=== PATIENT | male | born 1960 | race Hispanic/Latino ===

== ENCOUNTER 2024-04-27 15:41 | Emergency (ER) | payer OTHER ==
[~2024-04-27] VITALS: Ht 165.1 cm; Wt 69.6 kg
[2024-04-27] MEDS ORDERED: OXYCODONE/APAP 5/325 TAB PO ONE (16:00)
[2024-04-27] MEDS ORDERED: CYMBALTA60 MG PO (16:03)
[2024-04-27] MEDS ORDERED: VITAMIN B-121000 MC3 PO (16:03)
[2024-04-27] MEDS ORDERED: ZYRTEC10 M3 PO (16:05)
[2024-04-27] MEDS ORDERED: VITAMIN D350 MCG PO (16:07)
[2024-04-27] MEDS ORDERED: VOLTAREN ARTHRI20 GM (16:09)
[2024-04-27] MEDS ORDERED: UREA85 G1 TOP (16:10)
[2024-04-27] MEDS ORDERED: SEBEX SHAMPOO118 ML TOP (16:10)
[2024-04-27 16:58] VITALS: BP 127/83
== END 2024-04-27 16:55 | disposition other institution, planned readmission (95) ==
LOC: ED 15:41
DX: S60.221A Contusion of right hand, initial encounter (principal); W23.0XXA Caught, crushed, jammed, or pinched between moving objects, initial encounter; Z79.899 Other long term (current) drug therapy
CPT/HCPCS: 73130; 99283

== ENCOUNTER 2024-11-10 09:53 | Emergency (ER) | payer OTHER ==
[~2024-11-10] VITALS: Ht 165.1 cm; Wt 70.4 kg
[~2024-11-10 09:53] MED LIST: CYMBALTA60 MG PO; SEBEX SHAMPOO118 ML TOP; UREA85 G1 TOP; VITAMIN B-121000 MC3 PO; VITAMIN D350 MCG PO; VOLTAREN ARTHRI20 GM; ZYRTEC10 M3 PO
--- OUTSIDE RECORDS SUMMARY | 2024-11-10 09:59 | XMS ---
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 Omero has no Care Guidelines for this patient. [facility] MO[facility] NOTE: Visits indicate total known visits. ED/C VISIT TRACKING (12 MO.) 11/10/2024 09:[facility] [place] TYPE: Emergency COMPLAINT: - LT LEG PAIN 10/28/2024 18:46 [facility] [place] TYPE: Emergency COMPLAINT: - LT LOWER LEG DISCOLORATION DIAGNOSES: - Activity, soccer - Contusion of left lower leg, initial encounter - Struck by soccer ball, initial encounter 10/23/2024 15:39 [facility] [place] TYPE: Emergency COMPLAINT: - LT FOOT SWELLING DIAGNOSES: - Activity, soccer - Contusion of left lower leg, initial encounter - Other technician terminal and repeater (current) drug therapy - Pain in left leg 04/27/2024 15:41 [facility] [place] TYPE: Emergency COMPLAINT: - HAND INJURY DIAGNOSES: - Caught, crushed, jammed, or pinched between moving objects, initial encounter - Contusion of right hand, initial encounter - Other technician terminal and repeater (current) drug therapy - Pain in right hand INPATIENT VISIT TRACKING (12 MO.) No inpatient visits to display in this time frame [email or web address]
[2024-11-10] MEDS ORDERED: B-121000 MC2 PO (10:09)
[2024-11-10] MEDS ORDERED: ALL DAY ALLERGY10 M3 PO (10:09)
[2024-11-10] MEDS ORDERED: ARTHRITIS PAIN150 G1 TP (10:09)
[2024-11-10] MEDS ORDERED: CYMBALTA60 MG PO (10:09)
[2024-11-10] MEDS ORDERED: TRAMADOL HCL50 MG PO (10:10)
[2024-11-10] MEDS ORDERED: VITAMIN D350 MC3 PO (10:10)
[2024-11-10] MEDS ORDERED: HYDROCODON-ACE1 EA10 PO (10:10)
[2024-11-10 12:05] VITALS: BP 131/98
== END 2024-11-10 12:05 | disposition home or self-care (01) ==
LOC: ED 09:53
DX: S80.12XA Contusion of left lower leg, initial encounter (principal); W21.02XA Struck by soccer ball, initial encounter; Y93.66 Activity, soccer
CPT/HCPCS: 10160; 73590; 99283-25

== ENCOUNTER 2024-11-27 09:43 | Emergency (ER) | payer OTHER ==
[~2024-11-27] VITALS: Ht 165.1 cm; Wt 70.9 kg
[~2024-11-27 09:43] MED LIST changes: +ALL DAY ALLERGY10 M3 PO; +ARTHRITIS PAIN150 G1 TP; +B-121000 MC2 PO; +HYDROCODON-ACE1 EA10 PO; +TRAMADOL HCL50 MG PO; +VITAMIN D350 MC3 PO
[2024-11-27] MEDS ORDERED: CEPHALEXIN500 MG PO (10:36)
[2024-11-27] MEDS ORDERED: BACTRIM DS TAB1 EACH PO (10:36)
--- OUTSIDE RECORDS SUMMARY | 2024-11-27 11:13 | XMS ---
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 Omero has no Care Guidelines for this patient. Silvina VISIT COUNT (12 MO.) [address] [facility] TOTAL 5 NOTE: Visits indicate total known visits. ED/C VISIT TRACKING (12 MO.) 11/27/2024 09:[facility] [place] TYPE: Emergency COMPLAINT: - SKIN PROBLEM 11/10/2024 09:54 [facility] [place] TYPE: Emergency COMPLAINT: - LT LEG PAIN DIAGNOSES: - Activity, soccer - Contusion of left lower leg, initial encounter - Pain in left leg - Struck by soccer ball, initial encounter 10/28/2024 18:46 [facility] [place] TYPE: Emergency COMPLAINT: - LT LOWER LEG DISCOLORATION DIAGNOSES: - Activity, soccer - Contusion of left lower leg, initial encounter - Struck by soccer ball, initial encounter 10/23/2024 15:39 [facility] [place] TYPE: Emergency COMPLAINT: - LT FOOT SWELLING DIAGNOSES: - Activity, soccer - Contusion of left lower leg, initial encounter - Other long term care phlebotomist (current) drug therapy - Pain in left leg 04/27/2024 15:[address] [facility] [place] TYPE: Emergency COMPLAINT: - HAND INJURY DIAGNOSES: - Caught, crushed, jammed, or pinched between moving objects, initial encounter - Contusion of right hand, initial encounter - Other long term care phlebotomist (current) drug therapy - Pain in right hand INPATIENT VISIT TRACKING (12 MO.) No inpatient visits to display in this time frame [email or web address]
[2024-11-27 11:27] VITALS: BP 121/91
== END 2024-11-27 11:17 | disposition home or self-care (01) ==
LOC: ED 09:43
DX: L03.116 Cellulitis of left lower limb (principal); T36.4X6A Underdosing of tetracyclines, initial encounter; Z91.148 Patient's other noncompliance with medication regimen for other reason; Z98.890 Other specified postprocedural states; Z79.899 Other long term (current) drug therapy
CPT/HCPCS: 99283